=== PATIENT | male | born 1965 | race Two or more races ===

== ENCOUNTER 2022-02-06 07:51 | Outpatient (CLI) | payer OTHER ==
[~2022-02-06 07:51] MED LIST: CEPHALEXIN500 MG PO; KETO10TA2 PO; NOVOLOG100 U/ML; VYTORIN 10-20 M1 TAB
== END 2022-02-06 11:36 | disposition home or self-care (01) ==
LOC: NUCLEAR 07:51
PROVIDERS: ATTEND Internal Medicine
DX: I25.9 Chronic ischemic heart disease, unspecified (principal)
CPT/HCPCS: 78452; 93017; A9500; J0153